=== PATIENT | female | born 1955 | race Caucasian/White ===

== ENCOUNTER → 2018-06-30 09:33 | Outpatient (CLI) | payer OTHER, SELFPAY ==
--- NOTE | 2018-06-30 10:03 | RAD_ITS ---
STUDY: X-RAY CHEST REASON FOR EXAM: Female, 63 years old. Hemoptysis. Hiatal hernia. TECHNIQUE: Frontal and lateral views of the chest. COMPARISON: None. FINDINGS: The lungs are clear and expanded. There is no demonstrated pleural abnormality. Normal size heart. Normal mediastinum and uriel. Normal visualized pulmonary arteries. Normal visualized aortic arch and descending thoracic aorta. Normal visualized thoracic spine. Normal visualized ribs, clavicles, and shoulders. There is no demonstrated abnormality of the visualized soft tissue structures of the upper abdomen. RAD/Chest PA and Lateral IMPRESSION: Normal x-ray examination of the chest. Electronically Signed: David Garcia MD at 18:28 EDT , Service support ,
[2018-06-30 11:01] LABS: Absolute Lymphocyte Count 2.55 X10^3/ul (0.83-4.51); Basophil# 0.05 X10^3/uL; Basophil% 0.6 % (0-1); Eosinophil# 0.16 X10^3/uL; Eosinophils% 1.9 % (0-5); Hematocrit 43.9 % (37-47); Hemoglobin 13.8 g/dl (12.0-15.0); Lymphocyte # 2.55 X10^3/ul (4.0); Lymphocyte % 30.7 % (19-41); Mean Corp Hgb Conc 31.4 g/gl (32-36); Mean Corpuscular Hgb 28.3 pg (27.0-32.0); Mean Corpuscular Volume 90.1 fL (81-99); Mean Platelet Vol. 9.5 fl (6.2-12.0); Monocyte# 0.59 X10^3/uL; Monocyte% 7.1 % (0-10); Neutrophil # 4.95 X10^3/uL (2.7-7.7); Neutrophil % 59.6 % (47-70); Platelet Count 413 K/mm3 (150-450); RBC Distribution Width CV 13.3 % (11.6-14.6); RBC Distribution Width SD 44.2 fl (35.1-43.9); Red Blood Count 4.87 M/mm3 (4.2-5.4); White Blood Count 8.3 K/mm3 (4.4-11.0)
[2018-06-30 11:03] LABS: POSITIVE COUNT NO; POSITIVE DIFFERENTIAL NO; POSITIVE MORPHOLOGY NO
[2018-06-30 11:45] LABS: ALB/GLOB Ratio 0.9 RATIO (0.9-2.4); AST(SGOT) 15 U/L (15-37); Alanine Aminotransfer ALT/SGPT 22 U/L (13-56); Albumin, Serum 3.6 g/dL (3.2-5.0); Alkaline Phosphatase 81 U/L (45-117); Anion Gap 9 (5-15); BUN 8 mg/dL (7-18); BUN/Creat Ratio 7.8 RATIO (10-20); Calcium,Total 9.2 mg/dL (8.5-10.1); Chloride 105 mmol/L (98-107); Cholesterol 246 mg/dL (200); Creatinine, Serum 1.03 mg/dL (0.55-1.02); EST Glomerular Filtration Rate 58 mL/min (>60); Est Glom Filt Rate - Afr Amer 70 mL/min (>60); Globulin 3.8 g/dL (2.2-4.2); Glucose 95 mg/dL (74-106); High Density Lipoprotein 38 mg/dL; Potassium 3.7 mmol/L (3.5-5.1); Protein, Total 7.4 g/dL (6.4-8.2); Sodium Level 141 mmol/L (136-145); Thyroid Stim Hormone (TSH) 0.91 uIU/mL (0.358-3.74); Triglycerides 253 mg/dL; Very Low Density Lipoprotein 51 mg/dL (5-40)
== END ==
PROVIDERS: Family Provider Family Medicine; PCP Family Medicine; Referring Provider Family Medicine; Visit Provider Family Medicine
DX: R04.2 Hemoptysis (principal); I10 Essential (primary) hypertension; E03.9 Hypothyroidism, unspecified
CPT/HCPCS: 36415; 71046; 80053; 80061; 84443; 85025

== ENCOUNTER → 2018-08-03 15:07 | Outpatient (CLI) | payer OTHER, SELFPAY ==
[2018-08-03 17:24] LABS: Absolute Lymphocyte Count 2.38 X10^3/ul (0.83-4.51); Absolute Neutrophil Count 4.3 X10^3/uL (2.0-7.7); Basophil# 0.04 X10^3/uL; Basophil% 0.5 % (0-1); Eosinophil# 0.34 X10^3/uL; Eosinophils% 4.2 % (0-5); Hematocrit 45.9 % (37-47); Hemoglobin 14.6 g/dl (12.0-15.0); Lymphocyte # 2.38 X10^3/ul (4.0); Lymphocyte % 29.4 % (19-41); Mean Corp Hgb Conc 31.8 g/gl (32-36); Mean Corpuscular Hgb 28.3 pg (27.0-32.0); Mean Platelet Vol. 9.7 fl (6.2-12.0); Monocyte# 1.06 X10^3/uL; Monocyte% 13.1 % (0-10); Neutrophil # 4.26 X10^3/uL (2.7-7.7); Neutrophil % 52.7 % (47-70); Platelet Count 372 K/mm3 (150-450); RBC Distribution Width CV 13.5 % (11.6-14.6); RBC Distribution Width SD 43.6 fl (35.1-43.9); Red Blood Count 5.16 M/mm3 (4.2-5.4); White Blood Count 8.1 K/mm3 (4.4-11.0)
[2018-08-03 17:26] LABS: POSITIVE COUNT NO; POSITIVE DIFFERENTIAL NO; POSITIVE MORPHOLOGY NO
[2018-08-03 17:27] LABS: Anion Gap 10 (5-15); BUN 7 mg/dL (7-18); BUN/Creat Ratio 6.4 RATIO (10-20); Calcium,Total 9.2 mg/dL (8.5-10.1); Chloride 104 mmol/L (98-107); EST Glomerular Filtration Rate 54 mL/min (>60); Est Glom Filt Rate - Afr Amer 65 mL/min (>60); Glucose 103 mg/dL (74-106); Potassium 3.5 mmol/L (3.5-5.1); Sodium Level 139 mmol/L (136-145)
[2018-08-03 17:42] LABS: Vitamin D,25 Hydroxy 39.2 ng/mL (29.95-100.01)
== END ==
PROVIDERS: Family Provider Family Medicine; PCP Family Medicine; Visit Provider Family Medicine
DX: E55.9 Vitamin D deficiency, unspecified (principal); R19.7 Diarrhea, unspecified
CPT/HCPCS: 36415; 80048; 82306; 85025

== ENCOUNTER → 2019-02-06 15:13 | Outpatient (CLI) | payer OTHER, SELFPAY ==
--- NOTE | 2019-02-06 15:18 | BI_ITS ---
MAMMOGRAPHY - BILATERAL SCREENING REASON FOR EXAM: Female, 63 years old. Routine annual screening examination. PERTINENT HISTORY: Non-contributory. TECHNIQUE: Digital bilateral breast ary (3D mammographic acquisition) in the CC and MLO projections. 2-D mediolateral oblique (MLO) and craniocaudad (CC) views of both breasts were obtained. CAD: Full Field Digital Mammography with Computer Added Detection was performed. COMPARISON: Comparison is made with prior study dated December 15, 2015 and February 14, 2012. FINDINGS: Breast Composition: There are scattered areas of fibroglandular density. There are no dominant masses or suspicious calcifications. Stable appearance of the small bilateral axillary lymph nodes. No other significant abnormalities are identified. There has been no significant change since the prior study. BI/SCREENING MAMM (CAD), BILAT IMPRESSION: Stable bilateral screening mammogram. Yearly follow-up mammogram recommended. (A) ASSESSMENT CATEGORY: BIRADS Category 2: Benign. A letter regarding these results will be sent to the patient by the facility within 30 days. Approximately 10% of breast cancers are not detected by mammography. A normal mammogram should not delay biopsy of a clinically suspicious abnormality. [id number] Electronically Signed: Lior Salomon, at 8:23 EDT , Service support ,
== END ==
PROVIDERS: Family Provider Family Medicine; PCP Family Medicine; Referring Provider Family Medicine; Visit Provider Family Medicine
DX: Z12.31 Encounter for screening mammogram for malignant neoplasm of breast (principal)
CPT/HCPCS: 77063; 77067

== ENCOUNTER → 2019-02-19 08:41 | Outpatient (CLI) | payer OTHER, SELFPAY ==
[2019-02-19 08:34] VITALS: BMI 45.3
--- NOTE | 2019-02-19 08:42 | RAD_ITS ---
STUDY: X-RAY - LEFT KNEE REASON FOR EXAM: Female, 63 years old. Chronic knee pain TECHNIQUE: 4 view(s) of the knee. COMPARISON: None. FINDINGS: Normal visualized distal femur. Normal visualized proximal tibia and fibula. Normal proximal tibiofibular articulation. There is no demonstrated fracture. There is moderate to severe degenerative arthrosis of the medial femorotibial compartment with moderate joint space narrowing. There is mild degenerative arthrosis of the lateral femorotibial compartment. Normal patellofemoral articulation. There is a soft tissue prominence in the suprapatellar region suggesting a small volume joint effusion. The soft tissue structures are unremarkable. RAD/Knee 4 or More Views IMPRESSION: No acute fracture or dislocation. Medial compartment degenerative changes. Small effusion. Electronically Signed: David Garcia MD at 19:17 EDT , Service support ,
--- NOTE | 2019-02-19 08:42 | RAD_ITS ---
STUDY: X-RAY - RIGHT KNEE REASON FOR EXAM: Female, 63 years old. Chronic knee pain. TECHNIQUE: 4 view(s) of the knee. COMPARISON: None. FINDINGS: Normal visualized distal femur. Normal visualized proximal tibia and fibula. Normal proximal tibiofibular articulation. There is no demonstrated fracture. There is severe degenerative arthrosis of the medial femorotibial compartment with severe joint space narrowing. Normal lateral femorotibial compartment. There is mild degenerative arthrosis of the patellofemoral articulation. There is a soft tissue prominence in the suprapatellar region suggesting a small volume joint effusion. The soft tissue structures are unremarkable. RAD/Knee 4 or More Views IMPRESSION: Severe medial compartment degenerative disease. Small effusion. No acute fracture or dislocation. Electronically Signed: David Garcia MD at 19:16 EDT , Service support ,
== END ==
PROVIDERS: Family Provider Family Medicine; PCP Family Medicine; Referring Provider Orthopaedic Surgery; Visit Provider Orthopaedic Surgery
DX: M17.0 Bilateral primary osteoarthritis of knee (principal)
CPT/HCPCS: 73564

== ENCOUNTER → 2019-02-19 08:45 | Outpatient (CLI) | payer OTHER, SELFPAY ==
[2019-02-19 08:34] VITALS: BMI 45.3
== END ==
PROVIDERS: Family Provider Family Medicine; PCP Family Medicine; Referring Provider Orthopaedic Surgery; Visit Provider Orthopaedic Surgery
DX: Z00.00 Encounter for general adult medical examination without abnormal findings (principal)

== ENCOUNTER 2019-07-10 09:47 | Observation (INO) | payer OTHER, SELFPAY ==
[2019-06-06 07:49] VITALS: BMI 45.3
[2019-06-25 12:36] VITALS: BMI 45.3
[2019-07-03 09:29] VITALS: BP 135/89; PULSE 67; RESP 16; TEMP 36.4; O2SAT 97; BMI 45.1
--- NOTE | 2019-07-03 09:36 | SDCEKG_ITS ---
Test Reason : Blood Pressure : / mmHG Vent. Rate : 062 BPM Atrial Rate : 062 BPM P-R Int : 168 ms QRS Dur : 096 ms QT Int : 432 ms P-R-T Axes : 047 -08 037 degrees QTc Int : 438 ms Normal sinus rhythm Normal ECG Confirmed by CHARLOTTE BULL ([id number]), metropolitan editor AYANNA KILLIAN ([id number]) on 07/09/2019 12:17:22 PM Referred By: Haresh Onofre Confirmed By:CHARLOTTE BULL
[2019-07-03 10:05] LABS: Hematocrit 44.7 % (37-47); Hemoglobin 14.1 g/dL (12.0-15.0); Mean Corp Hgb Conc 31.5 g/dL (32-36); Mean Corpuscular Hgb 28.7 pg (27.0-32.0); Mean Platelet Vol. 9.1 fl (6.2-12.0); Platelet Count 398 K/mm3 (150-450); RBC Distribution Width CV 13.3 % (11.6-14.6); RBC Distribution Width SD 45.1 fl (35.1-43.9); Red Blood Count 4.91 M/mm3 (4.2-5.4); White Blood Count 8.2 K/mm3 (4.4-11.0)
[2019-07-03 10:46] LABS: Anion Gap 8 (5-15); BUN 9 mg/dL (7-18); BUN/Creat Ratio 9.5 RATIO (10-20); Calcium,Total 9.1 mg/dL (8.5-10.1); Chloride 105 mmol/L (98-107); Cholesterol 251 mg/dL (200); Creatinine, Serum 0.95 mg/dL (0.55-1.02); EST Glomerular Filtration Rate 64 mL/min (>60); Est Glom Filt Rate - Afr Amer 77 mL/min (>60); Estimated Creatinine Clearance 48.56 ml/min; Glucose 92 mg/dL (74-106); High Density Lipoprotein 42 mg/dL; Potassium 4.4 mmol/L (3.5-5.1); Sodium Level 141 mmol/L (136-145); Thyroid Stim Hormone (TSH) 3.79 uIU/mL (0.358-3.74); Triglycerides 308 mg/dL; Very Low Density Lipoprotein 62 mg/dL (5-40)
[2019-07-10] VITALS (12 sets, daily range): BP systolic 121–151; BP diastolic 60–89; PULSE 68–91; RESP 15–18; TEMP 36.1–36.9; O2SAT 94–100; BMI 45.1
[2019-07-10 05:56] LABS: Bedside Glucose 104 mg/dL (70-110)
[2019-07-10] MEDS: Acetaminophen 500 MG Tablet 1000 MG PO ×3 (06:13→20:57)
[2019-07-10] MEDS: Scopolamine 1mg/72hr Patch 1 PATCH TRANSDERM. (06:13)
[2019-07-10] MEDS: Gabapentin 600 MG Tablet PO (06:16)
[2019-07-10] MEDS: Magnesium Sulfate 4gm/100mL 4 GM/100 ML IV.SOLN. IV (06:18)
[2019-07-10] MEDS: Lactated Ringers 1,000 ML 100 ML IV (06:25)
--- NOTE | 2019-07-10 07:00 | HP.PCM_ITS ---
History and Physical Date of Admission: 07/10/19 Intake Vital Signs 06/25/19 Body Mass Index (BMI) 45.3 Intake Visit Reasons: RIGHT KNEE Allergies Sulfa (Sulfonamide Antibiotics) Allergy (Mild, Verified 02/19/19 08:36) Hives Penicillins Allergy (Verified 02/22/18 09:10) Rash Medications Cholecalciferol (Vitamin D3) [Vitamin D3] 5,000 unit PO DAILY 02/01/14 [History Confirmed 06/25/19] Docusate Sodium [Colace] 100 mg PO QHS 02/01/14 [History Confirmed 06/25/19] Esomeprazole Mag Trihydrate [Nexium] 40 mg PO DAILY 02/01/14 [History Confirmed 06/25/19] Levothyroxine [Synthroid] 150 mcg PO DAILY 02/01/14 [History Confirmed 06/25/19] Albuterol IH (ProAir) [Proair Hfa (SP)Vent Pts] 2 puff INHALATION Q6H PRN PRN 01/24/15 [History Confirmed 06/25/19] Metoprolol(XL)Succ [Toprol Xl (Beta Gabriel)] 50 mg PO BID 01/24/15 [History Confirmed 06/25/19] PFSH Medical History (Updated 06/06/19 @ 10:56 by Triny Nickerson) Hypothyroidism (Acute) HTN (hypertension) (Chronic) Social History (Updated 06/25/19 @ 16:27 by GOLDEN Romero) Smoking Status: Never smoker HPI RIGHT KNEE: Details: Parts of this documentation were recorded by a scribe, this documentation accurately reflects the service provided and the decisions made by miJonny PA 06/25/19 1236. TENA QUINTANILLA is a 64 year old F here today to sign consent for right TKA. Patient has already discussed the surgery with our surgeon at her last visit. Denies numbness, tingling or other associated symptoms. Continues to have right generalized knee pain. surgery is sent for 07/10/19. Patients insurance will not cover the Iovera tx and she does not wish to pay out of pocket for this. ROS Const Reports system reviewed and no additional complaints, except as docu Eyes Reports system reviewed and no additional complaints, except as docu ENT Reports system reviewed and no additional complaints, except as docu Card Reports system reviewed and no additional complaints, except as docu Resp Reports system reviewed and no additional complaints, except as docu GI Reports system reviewed and no additional complaints, except as docu Musc Reports system reviewed and no additional complaints, except as docu, Reports as per HPI Skin/Breast Reports system reviewed and no additional complaints, except as docu Neuro Yes system reviewed and no additional complaints, except as docu Psych Reports system reviewed and no additional complaints, except as docu Endo Reports system reviewed and no additional complaints, except as docu Clayton/Lymph Reports system reviewed and no additional complaints, except as docu Aller/Immun Reports system reviewed and no additional complaints, except as docu Ortho Exam Right Knee Skin/Wound: No erythema, No ecchymosis, No swelling Contralateral Normal: Yes Homans Sign: No Knee ROM: No ROM-Extension -20 to 0, No ROM-Flexion 0-140 Examination: Yes Med jt line tenderness Assessment & Plan Problems 1. Chronic pain of right knee M25.561; G89.29 2. Primary osteoarthritis of right knee M17.11 Plan Patient presents to the office to sign surgical consent for right total knee arthroplasty. Patient has already met with Dr. Onofre and discussed the procedure as well as the recovery process. We did go over this procedure again as well as expectations postoperatively. Patient does have a ranch style home with walkout basement at the same time does have 13 stairs to get to the main level. She does have access to everything she needs on the walk out floor and therefore does not have to do her stairs immediately following surgery. We did look into Iovera treatment which is not currently covered by insurance and therefore does not want to proceed with paying [id number] for that. We again discussed risks and benefits of surgical procedure planned. Patient is aware of these risks and all of her questions were answered to her satisfaction today. Consent was signed in office today. Patient already has her antibacterial soap to be used prior to surgery as previously directed. Patient will receive a phone call from surgery as well as anesthesia for preanesthesia testing. She already has her date scheduled at the same time will not know the time of her surgery until the day before. She can notify the office if she has any que stions or other concerns or complaints in the meantime. Patient will stop anti- inflammatories 5 to 7 days prior to procedure. This note was generated with Dragon dictation software. It may contain incorrect words, spelling, and punctuation that were not noted in checking the note before signing. Coding Level of Care Code Off vis,est,level 2 Diagnoses Chronic pain of right knee M25.561; G89.29 ??Chronicity: chronic Primary osteoarthritis of right knee M17.11 I have re-examined the patient. There are no clinical changes since date of exam
[2019-07-10] MEDS: Cefazolin 2 GM in 0.9% Normal Saline 100 ML IV (07:31)
[2019-07-10] MEDS: dexAMETHasone 10 MG/ML Vial IV (07:54)
[2019-07-10] MEDS: Bupivacaine Mpf 0.5% 30 ML VIAL (08:30)
[2019-07-10] MEDS: Betamethasone/Betamethasone 30 MG/5 ML Vial (08:30)
[2019-07-10] MEDS: Epinephrine (1 mg/ml) 1 MG/ML VIAL (08:30)
--- NOTE | 2019-07-10 09:31 | PCM.OPRPT ---
Report of Operation Date of Procedure: 07/10/19 Description of Surgical Findings:: Preoperative diagnosis: Right knee DJD Postoperative diagnosis: Same Procedure: Right total knee arthroplasty Implant: Imogene triathlon cemented right femoral component size 4, cemented tibial baseplate size 4, cemented asymmetric patella size 35, polyethylene X3 size 9 CS Anesthesia: Spinal with adductor canal block Tourniquet time: 62 minutes at 300 mmHg Complications: None Condition: Stable to PACU Estimated blood loss: 25 cc Indication for procedure: This is a 64-year-old female with long standing degenerative joint disease of the knee who has failed conservative treatment and wished to proceed with elective total knee arthroplasty. Risk benefits and alternatives were reviewed including; risk of bleeding, infection, nerve artery and tissue damage, continued pain, postoperative stiffness, venous thromboembolism, need for postoperative rehabilitation, mechanical feel to the knee, and expected postoperative course. Procedure: The patient was met in the preoperative holding area. The operative extremity was identified by both patient and physician and was marked. Patient was met by anesthesia. An adductor canal block was placed by anesthesia postoperatively the patient was brought back to the operating room on a wheeled cart and transferred to the operating table in the supine position. Anesthesia was started. A well-padded tourniquet was placed on the operative extremity. The patient was prepped and draped in the usual sterile fashion. A timeout was called to ensure the proper patient procedure and extremity were being contemplated. An Esmarch was used to exsanguinate the extremity. The tourniquet was inflated. A 10 blade scalpel was used to make a midline incision down through the skin and subcutaneous tissue. Skin retractors placed. Bovie was used to perform meticulous hemostasis. full-thickness flaps were elevated medial and lateral along the joint capsule. A deep blade scalpel was used to perform a medial parapatellar arthrotomy. The knee was brought to full extension. A Bovie was used to release the soft tissues off the most proximal aspect of the medial tibial plateau a three-quarter inch curved osteotome was also used for this process. The infrapatellar fat pad was excised. The fat pad was excised partially anterior lateral portion the anterior medial was elevated from the femur. the patella was everted. The knee was brought into flexion. An intramedullary drill was used followed by flexible intramedullary guide salazar. The distal femoral cutting block was placed and set to remove 8 mm of bone and 5 degrees of valgus. The block was secured with pins and an oscillating saw was used to complete the distal femoral cut. During this, and all bony cuts retractors were used to protect the collateral ligaments. At this point a femoral sizer was used to measure the AP dimension of the femur. The sizer block was pinned parallel to the epicondylar access for external rotation. The sizing block was removed and the appropriately sized 4-in-1 cutting block was placed over the previously made pinholes. It was checked with an zoraida wing and the block was secured with pins. An oscillating saw was used to complete the anterior cut followed by the posterior cut followed by the posterior chamfer cut followed by the anterior chamfer cut. The block was removed as well as the fragments. A ronguer was used to remove excess osteophytes. The medial and lateral meniscus were excised as well as the ACL. At this point a PCL retractor was placed and an intramedullary drill was passed down the tibial canal followed by a solid intramedullary guide salazar. The tibial cutting block was attached and set to remove 9 mm of bone from the high side. This was checked with an external alignment drop salazar for slope and tilt. It was pinned into place. An oscillating saw was used to complete the tibial plateau cut and the block was removed. A large osteotome was used to elevate the fragment and a Myrna and a Bovie were used to free the fragment from the surrounding soft tissue. A rongeur was once again used to remove osteophytes a lamina vessel operator was used to evaluate the posterior capsular structures. A three-quarter inch curved osteotome was used to remove posterior osteophytes. A spacer block was inserted in both extension and flexion to ensure adequate spacing. Trials were inserted full extension and flexion were achieved in varus and valgus stability throughout range of motion were seen, balancing techniques were performed. At this point the attention was turned towards the patella. A caliper was used to ensure sufficient bone stock to remove 10 mm of bone. A reamer was used to perform this task. Lug holes were made for the appropriate-sized patella. The patella trial was inserted and there was good patellar tracking with knee range of motion. The tibial baseplate was allowed to float into rotation and was marked on the tibial plateau with a Bovie. Lug holes were made in the femur and trials were removed. The tibial baseplate was then sized and its preparation was completed with a fin punch. The knee was thoroughly irrigated. A posterior capsular injection was performed with our standard cocktail. The knee was brought into flexion and irrigated again. The tibial baseplate was cemented. Excess cement was removed with curettes. The polyethylene component was inserted. The femoral component was cemented. The knee was brought into full extension and placed on a bump. The patellar component was cemented. At this point a Betadine rinse was placed and thoroughly irrigated after a few minutes. This was followed by an Iricept rinse which was allowed to sit for 1 minute and then thoroughly irrigated.At this point all gloves were changed. The knee was thoroughly irrigated the joint capsule was closed with #1 Ethibond. Tourniquet was let down followed by 0 Vicryl and 2-0 Vicryl in the subcutaneous tissues. followed by barbara in the skin. Dressing was applied in the form of Mepilex silver dressing web roll and an Javier wrap from the foot to the groin. The patient tolerated the procedure well, all counts were correct patient was brought back to the PACU in stable condition.
--- NOTE | 2019-07-10 10:10 | RAD_ITS ---
STUDY: X-RAY - RIGHT KNEE REASON FOR EXAM: Female, 64 years old. Postop follow-up of the right knee TECHNIQUE: AP and crosstable lateral view(s) of the knee. COMPARISON: Preoperative radiographs of the right knee dated February 19, 2019. FINDINGS: Normal visualized distal femur. Normal visualized proximal tibia and fibula. Normal proximal tibiofibular articulation. There is no demonstrated fracture. Patient is had a total right knee arthroplasty. There is a distal femoral and proximal tibial prosthesis. There has been posterior resurfacing of the posterior patella There is a moderate volume joint effusion. There is an air-fluid level within the suprapatellar bursa consistent recent surgery. There is diffuse soft tissue swelling with soft tissue emphysema. Surgical skin barbara are visible in the soft tissues of the anterior knee. RAD/Knee 1 or 2 Views IMPRESSION: Documentation of recent total right knee arthroplasty. Electronically Signed: Marianne Pryor MD at 10:39 EDT , Service support ,
[2019-07-10] MEDS: Lactated Ringers 1,000 ML 125 ML IV ×2 (10:41→15:38)
--- NOTE | 2019-07-10 11:25 | NURSING ---
pt refused flu shot
[2019-07-10] MEDS: Meclizine 12.5 MG Tablet PO (13:04)
[2019-07-10] MEDS: Ketorolac 15 MG/ML Vial IV (13:04)
[2019-07-10] MEDS: Cefazolin 1 GM/50 ML BAG IV ×2 (15:39→22:51)
[2019-07-10] MEDS: Metoprolol Tartrate 50 MG Tablet PO (20:57)
[2019-07-10] MEDS: Loratadine 10 MG Tablet PO (20:57)
[2019-07-10] MEDS: Docusate Sodium 100 MG Capsule PO (20:58)
[2019-07-11 04:54] VITALS: BP 119/71; PULSE 68; RESP 18; TEMP 36.9; O2SAT 100
[2019-07-11 04:56] VITALS: BP 119/71; PULSE 68
[2019-07-11] MEDS: Metoprolol Tartrate 50 MG Tablet PO (04:56)
[2019-07-11] MEDS: Pantoprazole Sodium 40 MG Tablet PO (04:56)
[2019-07-11] MEDS: Levothyroxine 150 MCG Tablet PO (04:57)
[2019-07-11] MEDS: Acetaminophen 500 MG Tablet 1000 MG PO ×2 (04:57→13:51)
[2019-07-11 06:08] LABS: Hematocrit 40.2 % (37-47); Hemoglobin 12.5 g/dL (12.0-15.0); Mean Corp Hgb Conc 31.1 g/dL (32-36); Mean Corpuscular Hgb 28.3 pg (27.0-32.0); Mean Corpuscular Volume 91.2 fL (81-99); Mean Platelet Vol. 9.5 fl (6.2-12.0); Platelet Count 394 K/mm3 (150-450); RBC Distribution Width CV 13.2 % (11.6-14.6); RBC Distribution Width SD 44.5 fl (35.1-43.9); Red Blood Count 4.41 M/mm3 (4.2-5.4); White Blood Count 19.7 K/mm3 (4.4-11.0)
[2019-07-11 06:23] LABS: Anion Gap 5 (5-15); BUN 10 mg/dL (7-18); BUN/Creat Ratio 11.3 RATIO (10-20); Calcium,Total 8.9 mg/dL (8.5-10.1); Chloride 108 mmol/L (98-107); Creatinine, Serum 0.88 mg/dL (0.55-1.02); EST Glomerular Filtration Rate 69 mL/min (>60); Est Glom Filt Rate - Afr Amer 83 mL/min (>60); Estimated Creatinine Clearance 52.42 ml/min; Glucose 121 mg/dL (74-106); Potassium 4.5 mmol/L (3.5-5.1); Sodium Level 141 mmol/L (136-145)
[2019-07-11] MEDS: APIXABAN 2.5 MG TABLET PO (06:33)
--- NOTE | 2019-07-11 06:34 | PCM.DC.ORTHO ---
Discharge Diet: No Restrictions Call your doctor if you observe: Fever of 101 or Higher, Shortness of breath, Chest pain Additional Instructions: Ice and elevate next week while not ambulating. Encourage ambulation weightbearing as tolerated. Encourage FULL knee extension and flexion 1 time EVERY time you get up and down and MULTIPLE times per day. Begin showering postop day #3. Remove the dressing prior to shower gently wash with warm water and antibacterial soap then pat dry place ABD pad and REZA hose over top. This is to be done daily. do not submerge for 3 weeks. If not showering daily must clean incision and change dressing daily. Do not allow animals near incision keep clean. Follow anticoagulation recommendations. Call Dr. Onofre with any concerns. Allergies/Adverse Reactions: Allergies Sulfa (Sulfonamide Antibiotics) Allergy (Mild, Verified 07/10/19 06:01) Hives Penicillins Allergy (Verified 07/10/19 06:01) Rash Medications to take at Discharge Cholecalciferol (Vitamin D3) [Vitamin D3] 5,000 unit PO DAILY 02/01/14 Docusate Sodium [Colace] 100 mg PO QHS 02/01/14 Esomeprazole Mag Trihydrate [Nexium] 40 mg PO DAILY 02/01/14 Levothyroxine [Synthroid] 150 mcg PO DAILY 02/01/14 Albuterol IH (ProAir) [Proair Hfa] 2 puff INHALATION Q6H PRN PRN 01/24/15 Metoprolol(XL)Succ [Toprol Xl (Beta Gabriel)] 50 mg PO BID 01/24/15 Loratadine [Claritin] 10 mg PO QHS 07/03/19 Acetaminophen [Tylenol] 1,000 mg PO Q6H PRN #100 tab 07/11/19 Apixaban [Eliquis] 2.5 mg PO 0700,1900 #28 tab 07/11/19 Oxycodone [Oxyir] 5 - 10 mg PO Q4H PRN PRN #60 tablet 07/11/19 The following prescriptions were given: Apixaban [Eliquis] 2.5 mg PO 0700,1900 #28 tab Transmission Status: Pending to [facility] Oxycodone [Oxyir] 5 - 10 mg PO Q4H PRN PRN #60 tablet PRN Reason: Pain Score 4-10/10 Transmission Status: Sent to [facility] Acetaminophen [Tylenol] 1,000 mg PO Q6H PRN #100 tab Transmission Status: Pending to [facility] Primary Care Physician: Nelly Kline DO [Primary Care Provider] - Test Results: Test results from this visit will be discussed in further detail at your follow-up appointment, if applicable. Please Follow Up With: Haresh Onofre DO - 2 weeks
--- NOTE | 2019-07-11 06:36 | PCM.DC.SUM ---
Discharge Date and Diagnosis Date of Admission: 07/10/19 Date of Discharge: 07/11/19 Hospital Course and Treatment Procedures: - - tka right Summary of Care Provided: The patient is a 64 year old F who has long history of degenerative joint disease to the knee who has failed conservative treatment and wished to undergo elective total knee arthroplasty. Patient underwent the aformentioned procedure on the admission date without any intraoperative complications. Patient did receive pre-and postoperative antibiotics which were discontinued within 23 hours postoperatively. Patient did receive spinal anesthesia as well as an adductor canal block postoperatively. pain was controlled with IV and transition to p.o. pain medication Patient will be discharged home with oxycodone and will continue Tylenol as well. Patient had minimal intraoperative blood loss and tranexamic acid was administered there was no need for postoperative blood transfusion her vital signs remained stable. Patient was started on both mechanical and chemical DVT per prophylaxis postoperatively in the form of SCDs REZA hose and Eliquis 2.5 mg twice daily for which she will continue for 2 additional weeks post hospital discharge. Javier removed post op day number one and thigh high reza hose placed over top of the meplix silver dressing. This should be removed 72 hrs post operatively and showering begun daily at that time with warm water and antibacterial soap. not to submerge for 3 weeks. To change dressing daily at that point. Patient will follow-up in the office in 2 weeks. No intrahospital complications. Subjective: Wake alert no acute distress denies any nausea vomiting shortness of breath chest pain diarrhea - Physical Exam General: Alert, Oriented x3, Cooperative Musculoskeletal: - - Dressing clean dry and intact compartment soft neurovascular intact EHL tibialis anterior gastrocsoleus palpable pedal pulses in tact sensation light touch Vital Signs Temp Pulse Resp BP Pulse Ox 98.4 F 68 18 119/71 100 07/11/19 04:54 07/11/19 04:56 07/11/19 04:54 07/11/19 04:56 07/11/19 04:54 Oxygen Flow Rate (L/min) 4 Oxygen Delivery Method Room Air Weight: 246 lb 14.684 oz Body Mass Index (BMI) 45.1 Orthostatic Vital Signs Start: 07/10/19 15:26 Freq: q24h Status: Active Protocol: Activity Type Activity Date Activity User E-Sign Co-Sign Detail Recorded Client Recorded Date Recorded By Document 07/10/19 13:00 [facility] [id number] 07/10/19 15:27 [facility] 07/10/19 13:00 Orthostatic Vitals Standing -Blood Pressure (90/60-120/80) 144/86 H -Extremity Use Left Arm -Pulse Rate (60-100) 83 Intake and Output for Last 24 Hours 07/09/19 07/10/19 07/11/19 23:59 23:59 23:59 Intake Total 4234.17 / 5034.17 1427.25 / 1427.25 Output Total 500 / 1200 700 / 700 Balance 3734.17 / 3834.17 727.25 / 727.25 Laboratory Tests Past 24 Hrs 07/11/19 07/11/19 05:26 05:26 WBC 19.7 H RBC 4.41 Hgb 12.5 Hct 40.2 MCV 91.2 MCH 28.3 MCHC 31.1 L RDW Std Deviation 44.5 H RDW Coeff of Milka 13.2 Plt Count 394 MPV 9.5 Sodium 141 Potassium 4.5 Chloride 108 H Carbon Dioxide 28.0 Anion Gap 5 BUN 10 Creatinine 0.88 Estim Creat Clear Calc 52.42 Est GFR (MDRD) Af Amer 83 Est GFR (MDRD) Non-Af 69 BUN/Creatinine Ratio 11.3 Glucose 121 H Calcium 8.9 Discharge Diet: No Restrictions Call your doctor if you observe: Fever of 101 or Higher, Shortness of breath, Chest pain Home Medications: Medications to take at Discharge Cholecalciferol (Vitamin D3) [Vitamin D3] 5,000 unit PO DAILY 02/01/14 Docusate Sodium [Colace] 100 mg PO QHS 02/01/14 Esomeprazole Mag Trihydrate [Nexium] 40 mg PO DAILY 02/01/14 Levothyroxine [Synthroid] 150 mcg PO DAILY 02/01/14 Albuterol IH (ProAir) [Proair Hfa] 2 puff INHALATION Q6H PRN PRN 01/24/15 Metoprolol(XL)Succ [Toprol Xl (Beta Gabriel)] 50 mg PO BID 01/24/15 Loratadine [Claritin] 10 mg PO QHS 07/03/19 Acetaminophen [Tylenol] 1,000 mg PO Q6H PRN #100 tab 07/11/19 Apixaban [Eliquis] 2.5 mg PO 0700,1900 #28 tab 07/11/19 Oxycodone [Oxyir] 5 - 10 mg PO Q4H PRN PRN #60 tablet 07/11/19 Following Prescrptions Were Given to Patient: Apixaban [Eliquis] 2.5 mg PO 0700,1900 #28 tab Transmission Status: Pending to [facility] Oxycodone [Oxyir] 5 - 10 mg PO Q4H PRN PRN #60 tablet PRN Reason: Pain Score 4-1010 Transmission Status: Sent to [facility] Acetaminophen [Tylenol] 1,000 mg PO Q6H PRN #100 tab Transmission Status: Pending to [facility] Primary Care Physician: Nelly Kline DO [Primary Care Provider] - Please Follow Up With: Haresh Onofre DO - 2 weeks Additional Instructions: Ice and elevate next week while not ambulating. Encourage ambulation weightbearing as tolerated. Encourage FULL knee extension and flexion 1 time EVERY time you get up and down and MULTIPLE times per day. Begin showering postop day #3. Remove the dressing prior to shower gently wash with warm water and antibacterial soap then pat dry place ABD pad and REZA hose over top. This is to be done daily. do not submerge for 3 weeks. If not showering daily must clean incision and change dressing daily. Do not allow animals near incision keep clean. Follow anticoagulation recommendations. Call Dr. Onofre with any concerns. Medical Necessity - Tobacco Use Smoking Status: Never smoker Tobacco Use: Non-smoker Meaningful Use Info Meaningful Use Diagnoses (Choose all that apply): None applicable
[2019-07-11 07:30] VITALS: BP 117/66; PULSE 59; RESP 16; TEMP 36.4; O2SAT 100
--- NOTE | 2019-07-11 10:15 | CASEMGMT ---
WAQAR GARNER Face to Face with patient for initial transition planning/care coordination assessment. WAQAR GARNER introduced self and role at [facility]. Patient lying in bed, alert and oriented, at bedside. Patient willing to participate in assessment and is able to answer all questions appropriately. Care providers, pharmacy, and demographics verified. Patient wishes to discharge home and would like outpatient therapy at [facility] in [place]. Patient states she has no further needs or concerns at this time. CM to follow for discharge planning needs that may arise. PCP: Eliud Specialists: Lencho Davis Pharmacy: [facility] Insurance: MMO Prescription Benefit:yes Living Will/HPOA: None LNOK: Living Arrangements: Patient lives with in ranch style home. Patient independent at home prior to surgery Transportation: DME/HHC: Patient states she has walker, grab bars, shower chair, and raised toilet at home. Patient requesting outpatient therapy at [facility]. WAQAR GARNER called to schedule appt with [facility] in [place] per patient's request. Initial appointment scheduled for Tuesday07/13/19 at 1415 in [place] office and then from there can schedule appointment in [place] office. Patient updated and agreeable. WAQAR GARNER called Dr. Onofre's office to request order for therapy be faxed to [facility]. Disposition Plan: Patient to discharge home with outpatient therapy, family support, and follow-up plans in place. [place] العلي, WAQAR, CM
[2019-07-11 13:54] VITALS: BP 130/70; PULSE 71; RESP 18; TEMP 36.4; O2SAT 99
== END 2019-07-11 14:21 | disposition home or self-care (01) ==
LOC: SDC 10:04 → MS3 10:04
PROVIDERS: Anesthesiology; Admitting Provider Orthopaedic Surgery; Family Provider Family Medicine; PCP Family Medicine; Referring Provider Orthopaedic Surgery; Visit Provider Orthopaedic Surgery
PROC: (CPT 27447; principal; 2019-07-10 07:05)
DX: M17.11 Unilateral primary osteoarthritis, right knee (principal); Z79.899 Other long term (current) drug therapy; E03.9 Hypothyroidism, unspecified; I10 Essential (primary) hypertension; G89.29 Other chronic pain; K21.9 Gastro-esophageal reflux disease without esophagitis; J45.909 Unspecified asthma, uncomplicated
CPT/HCPCS: 27447; 64447; 36415; 73560; 80048; 80061; 82962; 84443; 85027; 87081; 93005; 96361; 96365; 96366; 96375; 97110; 97116; 97162; 97166; 97530; 99218; C1776; J7120; G0378; G0379; J0702; J2405; J3490

== ENCOUNTER → 2019-09-03 14:38 | Outpatient (CLI) | payer OTHER, SELFPAY ==
[2019-09-03 14:07] VITALS: BMI 44.9
[2019-09-03 16:24] LABS: Free T3 2.7 pg/mL (2.18-3.98); T4 Free Direct 1.33 ng/dL (0.76-1.46); Thyroid Stim Hormone (TSH) 0.71 uIU/mL (0.358-3.74)
== END ==
PROVIDERS: Family Provider Family Medicine; PCP Family Medicine; Referring Provider Family Medicine; Visit Provider Family Medicine
DX: E03.9 Hypothyroidism, unspecified (principal)
CPT/HCPCS: 36415; 84439; 84443; 84481

== ENCOUNTER 2019-09-11 12:14 | Observation (INO) | payer OTHER, SELFPAY ==
[2019-08-20 11:37] VITALS: BMI 45.1
[2019-09-03 14:07] VITALS: BP 132/84; PULSE 88; RESP 16; TEMP 36.8; O2SAT 95; BMI 44.9
--- NOTE | 2019-09-10 13:01 | PCM.HP.BLA ---
History and Physical Date of Admission: 09/11/19 Intake Vital Signs 08/20/19 Body Mass Index (BMI) 45.1 Intake Visit Reasons: RIGHT KNEE Chief Complaint: right knee Allergies Sulfa (Sulfonamide Antibiotics) Allergy (Mild, Verified 07/10/19 06:01) Hives Penicillins Allergy (Verified 07/10/19 06:01) Rash [facility] Medical History (Updated 07/10/19 @ 09:33 by Haresh Onofre DO) Hypothyroidism (Acute) HTN (hypertension) (Chronic) Social History (Updated 08/20/19 @ 11:56 by Haresh Onofre DO) Smoking Status: Never smoker HPI RIGHT KNEE: Chief Complaint: left knee djd Details: Parts of this documentation were recorded by a scribe, this documentation accurately reflects the service provided and the decisions made by me, Haresh Onofre DO 08/20/19 0756. TENA QUINTANILLA is a 64 year old F here today for left knee djd. To recall she has failed extensive conservative treatment including injections and therapy and anti-inflammatories . She does wish to proceed with elective left total knee arthroplasty . In addition today she is here for f/u right TKA on 07/10/19. She is ambulating well with not gait change, she has another week of PT. Her left remains painful, increased with stairs and prolonged ambulation. ROS Musc Reports as per HPI, Reports joint pain, Reports stiffness Skin/Breast Reports system reviewed and no additional complaints, except as docu Neuro Yes system reviewed and no additional complaints, except as docu Ortho Exam Right Knee Skin/Wound: No erythema, No ecchymosis, Yes swelling Homans Sign: No Knee ROM: Yes ROM-Extension -20 to 0, No ROM-Flexion 0-140 (116) Examination: Yes Pain with flexion Stability: NML: Anterior Drawer, NML: Posterior Drawer, NML: Valgus 30, NML: Varus 30 Left Knee Skin/Wound: No ecchymosis, No erythema, No swelling Homans Sign: No Knee ROM: Yes ROM-Extension -20 to 0, No ROM-Flexion 0-140 (110) Examination: Yes med jt line tenderness, Yes Pain with flexion Stability: NML: Anterior Drawer, NML: Posterior Drawer, NML: Valgus 30, NML: Varus 30 Patella Grind: Yes KNEE: Neurovascularly intact palpable pedal pulses no sign of skin concerns Supplemental Info 02/19/2019 x-ray left knee: [id number] medial compartment arthritis with varus deformity severe patellofemoral arthritis 02/19/2019 x-ray right knee: [id number] arthritis medial compartment with varus deformity severe patellofemoral arthritis Assessment & Plan Problems 1. Primary osteoarthritis of left knee M17.12 Plan Explained that the popping is expected and that is related to the mechanical feel from the metal and plastic. She should continue PT and use the HEP when completed PT. We will xray at the one year post surgery, call for any antibiotics needed. Her left knee has failed to respond to conservative care, she is a candidate for a Left TKA as well and we can consent for the left. Risks, benefits and alternatives of surgery reviewed including but not limited to bleeding, infection, nerve, artery and/or tissue damage, fracture, VTE, mechanical feel of the knee, continued pain, stiffness and expected post-operative course. Follow up in 6wks or sooner if pain, swelling, numbness or associated symptoms, or concerns develop. All questions answered. Patient in agreement of plan. Coding Level of Care Code Off vis,est,level 3 Diagnoses Primary osteoarthritis of left knee M17.12 ??Osteoarthritis type: primary I have re-examined the patient. There are no clinical changes since date of exam
[2019-09-11] VITALS (10 sets, daily range): BP systolic 104–148; BP diastolic 50–80; PULSE 74–105; RESP 15–18; TEMP 36.4–37.1; O2SAT 94–100; BMI 44.9; BMI 45.0
[2019-09-11] MEDS: Scopolamine 1mg/72hr Patch 1 PATCH TRANSDERM. (07:00)
[2019-09-11] MEDS: Acetaminophen 500 MG Tablet 1000 MG PO ×2 (07:00→22:00)
[2019-09-11] MEDS: Celecoxib 200 MG Capsule 400 MG PO (07:00)
[2019-09-11] MEDS: Gabapentin 600 MG Tablet PO (07:00)
[2019-09-11 12:50] LABS: Bedside Glucose 229 mg/dL (70-110)
[2019-09-11] MEDS: Lactated Ringers 1,000 ML 100 ML IV ×2 (13:24→15:00)
[2019-09-11] MEDS: Magnesium Sulfate 4gm/100mL 4 GM/100 ML IV.SOLN. IV (13:24)
[2019-09-11] MEDS: Cefazolin 2 GM in 0.9% Normal Saline 100 ML IV (14:35)
[2019-09-11] MEDS: dexAMETHasone 10 MG/ML Vial IV (15:00)
[2019-09-11] MEDS: Epinephrine (1 mg/ml) 1 MG/ML VIAL (15:35)
[2019-09-11] MEDS: Betamethasone/Betamethasone 30 MG/5 ML Vial (15:35)
[2019-09-11] MEDS: Bupivacaine 0.5% PF 10 ML VIAL (15:35)
--- NOTE | 2019-09-11 16:41 | PCM.OPRPT ---
Report of Operation Date of Procedure: 09/11/19 Description of Surgical Findings:: preoperative diagnosis: Left knee DJD Postoperative diagnosis: Same Procedure: Left total knee arthroplasty Implant: [place] triathlon cemented left femoral component size 4, cemented tibial baseplate size 5, cemented asymmetric patella size 35, polyethylene X3 size 9 CS Anesthesia: Spinal with adductor canal block Tourniquet time: 62 minutes at 300 mmHg Complications: None Condition: Stable to PACU Estimated blood loss: 25 cc Indication for procedure: This is a 64-year-old female with long standing degenerative joint disease of the knee who has failed conservative treatment and wished to proceed with elective total knee arthroplasty. Risk benefits and alternatives were reviewed including; risk of bleeding, infection, nerve artery and tissue damage, continued pain, postoperative stiffness, venous thromboembolism, need for postoperative rehabilitation, mechanical feel to the knee, and expected postoperative course. Procedure: The patient was met in the preoperative holding area. The operative extremity was identified by both patient and physician and was marked. Patient was met by anesthesia. An adductor canal block was placed by anesthesia postoperatively the patient was brought back to the operating room on a wheeled cart and transferred to the operating table in the supine position. Anesthesia was started. A well-padded tourniquet was placed on the operative extremity. The patient was prepped and draped in the usual sterile fashion. A timeout was called to ensure the proper patient procedure and extremity were being contemplated. An Esmarch was used to exsanguinate the extremity. The tourniquet was inflated. A 10 blade scalpel was used to make a midline incision down through the skin and subcutaneous tissue. Skin retractors placed. Bovie was used to perform meticulous hemostasis. full-thickness flaps were elevated medial and lateral along the joint capsule. A deep blade scalpel was used to perform a medial parapatellar arthrotomy. The knee was brought to full extension. A Bovie was used to release the soft tissues off the most proximal aspect of the medial tibial plateau a three-quarter inch curved osteotome was also used for this process. The infrapatellar fat pad was excised. The fat pad was excised partially anterior lateral portion the anterior medial was elevated from the femur. the patella was everted. The knee was brought into flexion. An intramedullary drill was used followed by flexible intramedullary guide salazar. The distal femoral cutting block was placed and set to remove 10 mm of bone and 5 degrees of valgus. The block was secured with pins and an oscillating saw was used to complete the distal femoral cut. During this, and all bony cuts retractors were used to protect the collateral ligaments. At this point a femoral sizer was used to measure the AP dimension of the femur. The sizer block was pinned parallel to the epicondylar access for external rotation. The sizing block was removed and the appropriately sized 4-in-1 cutting block was placed over the previously made pinholes. It was checked with an zoraida wing and the block was secured with pins. An oscillating saw was used to complete the anterior cut followed by the posterior cut followed by the posterior chamfer cut followed by the anterior chamfer cut. The block was removed as well as the fragments. A ronguer was used to remove excess osteophytes. The medial and lateral meniscus were excised as well as the ACL. At this point a PCL retractor was placed and an intramedullary drill was passed down the tibial canal followed by a solid intramedullary guide salazar. The tibial cutting block was attached and set to remove 9 mm of bone from the high side. This was checked with an external alignment drop salazar for slope and tilt. It was pinned into place. An oscillating saw was used to complete the tibial plateau cut and the block was removed. A large osteotome was used to elevate the fragment and a Myrna and a Bovie were used to free the fragment from the surrounding soft tissue. A rongeur was once again used to remove osteophytes a lamina veneer glue spreader was used to evaluate the posterior capsular structures. A three-quarter inch curved osteotome was used to remove posterior osteophytes. A spacer block was inserted in both extension and flexion to ensure adequate spacing. Trials were inserted full extension and flexion were achieved in varus and valgus stability throughout range of motion were seen, balancing techniques were performed. At this point the attention was turned towards the patella. A caliper was used to ensure sufficient bone stock to remove 10 mm of bone. A reamer was used to perform this task. Lug holes were made for the appropriate-sized patella. The patella trial was inserted and there was good patellar tracking with knee range of motion. The tibial baseplate was allowed to float into rotation and was marked on the tibial plateau with a Bovie. Lug holes were made in the femur and trials were removed. The tibial baseplate was then sized and its preparation was completed with a fin punch. The knee was thoroughly irrigated. A posterior capsular injection was performed with our standard cocktail. The knee was brought into flexion and irrigated again. The tibial baseplate was cemented. Excess cement was removed with curettes. The polyethylene component was inserted. The femoral component was cemented. The knee was brought into full extension and placed on a bump. The patellar component was cemented. At this point a Betadine rinse was placed and thoroughly irrigated after a few minutes. This was followed by an Iricept rinse which was allowed to sit for 1 minute and then thoroughly irrigated.At this point all gloves were changed. The knee was thoroughly irrigated the joint capsule was closed with #1 Ethibond. Tourniquet was let down followed by 0 Vicryl and 2-0 Vicryl in the subcutaneous tissues. followed by barbara in the skin. Dressing was applied in the form of Mepilex silver dressing web roll and an Javier wrap from the foot to the groin. The patient tolerated the procedure well, all counts were correct patient was brought back to the PACU in stable condition.
--- NOTE | 2019-09-11 16:45 | RAD_ITS ---
STUDY: X-RAY - LEFT KNEE REASON FOR EXAM: Female, 64 years old. Postop left knee replacement TECHNIQUE: 2 view(s) of the knee. COMPARISON: None. Findings: There is a recent total knee arthroplasty. The femoral and tibial components appear in satisfactory position. There has been patellar resurfacing. There is soft tissue air consistent with the recent surgery. The visualized femoral, tibial, and fibular shafts are unremarkable. RAD/Knee 1 or 2 Views IMPRESSION: Satisfactory appearance of a total knee arthroplasty. Electronically Signed: David Garcia MD at 17:25 EST , Service support ,
[2019-09-11] MEDS: Cefazolin 1 GM/50 ML BAG IV (17:03)
[2019-09-11] MEDS: Metoprolol(XL)Succ 50 MG Tablet PO (21:58)
[2019-09-11] MEDS: Senna/Docusate Sodium 1 Tablet 2 TABLET PO (22:00)
[2019-09-11] MEDS: Lactated Ringers 1,000 ML 125 ML IV (22:01)
[2019-09-12] MEDS: Ketorolac 15 MG/ML Vial IV (00:12)
[2019-09-12] MEDS: Cefazolin 1 GM/50 ML BAG IV ×2 (01:51→09:07)
[2019-09-12 04:00] VITALS: BP 103/59; PULSE 79; RESP 16; TEMP 36.3; O2SAT 96
--- NOTE | 2019-09-12 04:20 | NURSING ---
Pt assisted by this RN to bathroom this morning, with wheeled walker. While assisting pt back to bed, pt's knees buckled while standing at sink; pt grasped walker while this RN supported pt and called for additional staff assistance. Pt assisted back to bed, polar care placed on left knee, pt positioned in bed. Pain needs met. Will continue to monitor.
[2019-09-12] MEDS: Acetaminophen 500 MG Tablet 1000 MG PO ×2 (05:31→13:38)
[2019-09-12] MEDS: Levothyroxine 175 MCG Tablet PO (05:31)
[2019-09-12 05:32] LABS: Hematocrit 38.6 % (37-47); Hemoglobin 12.2 g/dL (12.0-15.0); Mean Corp Hgb Conc 31.6 g/dL (32-36); Mean Corpuscular Volume 88.7 fL (81-99); Mean Platelet Vol. 9.4 fl (6.2-12.0); Platelet Count 393 K/mm3 (150-450); RBC Distribution Width CV 13.1 % (11.6-14.6); RBC Distribution Width SD 42.4 fl (35.1-43.9); Red Blood Count 4.35 M/mm3 (4.2-5.4); White Blood Count 14.1 K/mm3 (4.4-11.0)
[2019-09-12] MEDS: 0.9% Saline Lock 10 ML Syringe IV ×3 (05:35→10:05)
[2019-09-12 05:55] LABS: Anion Gap 7 (5-15); BUN 7 mg/dL (7-18); BUN/Creat Ratio 6.9 RATIO (10-20); Calcium,Total 8.8 mg/dL (8.5-10.1); Chloride 109 mmol/L (98-107); Creatinine, Serum 1.01 mg/dL (0.55-1.02); EST Glomerular Filtration Rate 59 mL/min (>60); Est Glom Filt Rate - Afr Amer 71 mL/min (>60); Estimated Creatinine Clearance 45.68 ml/min; Glucose 153 mg/dL (74-106); Potassium 4.9 mmol/L (3.5-5.1); Sodium Level 140 mmol/L (136-145)
[2019-09-12] MEDS: APIXABAN 2.5 MG TABLET PO (06:06)
[2019-09-12] MEDS: Celecoxib 200 MG Capsule PO (08:11)
[2019-09-12] MEDS: Pantoprazole Sodium 40 MG Tablet PO (08:11)
[2019-09-12 08:12] VITALS: PULSE 70
[2019-09-12] MEDS: Metoprolol(XL)Succ 50 MG Tablet PO (08:12)
[2019-09-12] MEDS: Senna/Docusate Sodium 1 Tablet 2 TABLET PO (08:12)
[2019-09-12 09:01] VITALS: BP 107/57; PULSE 78; RESP 16; TEMP 36.7; O2SAT 97
--- NOTE | 2019-09-12 10:00 | CASEMGMT ---
WAQAR GARNER Face to Face with patient for initial transition planning/care coordination assessment. RN PATSY introduced self and role at [facility]. Patient sitting in chair, alert and oriented, at bedside. Patient willing to participate in assessment and is able to answer all questions appropriately. Care providers, pharmacy, and demographics verified. Patient wishes to discharge home and is setup with outpatient therapy at [facility] in [place]. Patient states she has no further needs or concerns at this time. CM to follow for discharge planning needs that may arise. PCP: Eliud Specialists: Lencho Davis Pharmacy: [facility] Insurance: MMO Prescription Benefit:yes Living Will/HPOA: None LNOK: Living Arrangements: Patient lives with in ranch style home. Patient independent at home prior to surgery Transportation: DME/HHC: Patient states she has walker, grab bars, shower chair, and raised toilet at home. Patient is setup with outpatient therapy at [facility] for Tuesday. Disposition Plan: Patient to discharge home with outpatient therapy, family support, and follow-up plans in place.
--- NOTE | 2019-09-12 12:19 | DCINST_ITS ---
Discharge Diet: No Restrictions Weight Bearing Status: Weight bearing as tolerated Call your doctor if you observe: Fever of 101 or Higher, Shortness of breath, Chest pain Additional Instructions: Ice and elevate next week while not ambulating. Encourage ambulation weightbearing as tolerated. Encourage FULL knee extension and flexion 1 time EVERY time you get up and down and MULTIPLE times per day. Begin showering postop day #3. Remove the dressing prior to shower gently wash with warm water and antibacterial soap then pat dry place ABD pad and REZA hose over top. This is to be done daily. do not submerge for 3 weeks. If not showering daily must clean incision and change dressing daily. Do not allow animals near incision keep clean. Follow anticoagulation recommendations. Start physical therapy. call Dr. Onofre with any concerns. Allergies/Adverse Reactions: Allergies Sulfa (Sulfonamide Antibiotics) Allergy (Mild, Verified 09/11/19 12:48) Hives Penicillins Allergy (Verified 09/11/19 12:48) Rash Medications to take at Discharge Cholecalciferol (Vitamin D3) [Vitamin D3] 5,000 unit PO DAILY 02/01/14 Docusate Sodium [Colace] 100 mg PO QHS 02/01/14 Esomeprazole Mag Trihydrate [Nexium] 40 mg PO DAILY 02/01/14 Levothyroxine [Synthroid] 175 mcg PO DAILY 02/01/14 Albuterol IH (ProAir) [Proair Hfa] 2 puff INHALATION Q6H PRN PRN 01/24/15 Metoprolol(XL)Succ [Toprol Xl (Beta Gabriel)] 50 mg PO BID 01/24/15 Acetaminophen [Tylenol] 1,000 mg PO Q6H PRN #100 tab 09/12/19 Apixaban [Eliquis] 2.5 mg PO BID #28 tab 09/12/19 Oxycodone [Oxyir] 5 - 10 mg PO Q4H PRN PRN #60 tablet 09/12/19 The following prescriptions were given: Apixaban [Eliquis] 2.5 mg PO BID #28 tab Transmission Status: Pending to [facility] Oxycodone [Oxyir] 5 - 10 mg PO Q4H PRN PRN #60 tablet PRN Reason: Pain Score 4-10/10 Transmission Status: Sent to [facility] Acetaminophen [Tylenol] 1,000 mg PO Q6H PRN #100 tab Transmission Status: Pending to [facility] Primary Care Physician: Nelly Kline DO [Primary Care Provider] - Test Results: Test results from this visit will be discussed in further detail at your follow- up appointment, if applicable. Please Follow Up With: Haresh Onofre DO - 2 weeks
--- NOTE | 2019-09-12 12:21 | DS.PCM_ITS ---
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 Patient underwent the aformentioned procedure on the admission date without any intraoperative complications. Patient did receive pre-and postoperative antibiotics which were discontinued within 23 hours postoperatively. Patient did receive spinal anesthesia as well as an adductor canal block postoperatively. pain was controlled with IV and transition to p.o. pain medication Patient will be discharged home with oxycodone and will continue Tylenol as well. Patient had minimal intraoperative blood loss and 2gm tranexamic acid was administered there was no need for postoperative blood transfusion Patients vital signs remained stable. Patient was started on both mechanical and chemical DVT per prophylaxis postoperatively in the form of SCDs REZA hose and Eliquis 2.5 mg twice daily for which she will continue for 2 additional weeks post hospital discharge. Javier removed post op day number one and thigh high reza hose placed over top of the meplix silver dressing. This should be removed 72 hrs post operatively and showering begun daily at that time with warm water and antibacterial soap. not to submerge for 3 weeks. To change d ressing daily after first dressing change. Patient will follow-up in the office in 2 weeks. No intrahospital complications. Subjective: Awake and alert no acute distress complaint of pain no fevers chills nausea vomiting shortness of breath or chest pain. She had a feeling of instability where her knee gave way yesterday but today is feeling better - Physical Exam Vitals/I&O's: Vital Signs Temp Pulse Resp BP Pulse Ox 98.0 F 78 16 107/57 L 97 09/12/19 09:01 09/12/19 09:01 09/12/19 09:01 09/12/19 09:01 09/12/19 09:01 Oxygen Flow Rate (L/min) 6 Oxygen Delivery Method Room Air Weight: 245 lb 13.047 oz Body Mass Index (BMI) 44.9 Intake and Output for Last 24 Hours 09/10/19 09/11/19 09/12/19 23:59 23:59 23:59 Intake Total 2243.33 / 2243.33 1605.42 / 1605.42 Output Total 2150 / 2150 Balance 2243.33 / 2243.33 -544.58 / -544.58 General: Alert, Oriented x3, Cooperative, No apparent distress Extremities: - - Dressing clean dry and intact thigh-high REZA hose in place. Neurovascular intact compartments soft. Laboratory Results 09/11/19 12:44: POC Glucose 229 H 09/12/19 05:06: WBC 14.1 H, RBC 4.35, Hgb 12.2, Hct 38.6, MCV 88.7, MCH 28.0, MCHC 31.6 L, RDW Std Deviation 42.4, RDW Coeff of Milka 13.1, Plt Count 393, MPV 9.4 09/12/19 05:06: Sodium 140, Potassium 4.9, Chloride 109 H, Carbon Dioxide 24.0, Anion Gap 7, BUN 7, Creatinine 1.01, Estim Creat Clear Calc 45.68, Est GFR (MDRD) Af Amer 71, Est GFR (MDRD) Non-Af 59 L, BUN/Creatinine Ratio 6.9 L, Glucose 153 H, Calcium 8.8 Current Medications Acetaminophen (Tylenol) 1,000 mg PO Q8 [facility] Last Admin: 09/12/19 05:31 Dose: 1,000 mg Documented by: Albuterol Sulfate (Ventolin Aerosols) 2.5 mg INHALATION Q4H PRN PRN Reason: Asthma Apixaban (Eliquis) 2.5 mg PO BID [facility] Last Admin: 09/12/19 06:06 Dose: 2.5 mg Documented by: Celecoxib (Celebrex) 200 mg PO BID [facility] Last Admin: 09/12/19 08:11 Dose: 200 mg Documented by: Hydromorphone HCl (Dilaudid Inj) 0.5 mg IV Q2H PRN PRN PRN Reason: .BREAKTHROUGH PAIN (>4/10) Lactated Ringer's () 1,000 mls @ 125 mls/hr IV .Q8H [facility] Last Admin: 09/12/19 08:11 Dose: Not Given Documented by: Sodium Chloride () 250 mls @ 15 mls/hr IV .[id number] PRN PRN Reason: Saline Flush Ketorolac Tromethamine (Toradol) 15 mg IV Q6H PRN PRN PRN Reason: Pain Score 1-5/10 Stop: 12/12/19 16:37 Last Admin: 09/12/19 00:12 Dose: 15 mg Documented by: Levothyroxine Sodium (Synthroid) 175 mcg PO DAILY@0600 [facility] Last Admin: 09/12/19 05:31 Dose: 175 mcg Documented by: Meclizine HCl (Antivert) 12.5 mg PO TID PRN PRN PRN Reason: DIZZINESS Metoprolol Succinate (Toprol Xl (Beta Gabriel)) 50 mg PO BID [facility] Last Admin: 09/12/19 08:12 Dose: 50 mg Documented by: Ondansetron HCl (Zofran) 4 mg IV Q6H PRN PRN PRN Reason: NAUSEA Oxycodone HCl (Oxyir) 5 - 10 mg PO Q4H PRN PRN PRN Reason: Pain Score 4-1010 Pantoprazole Sodium (Protonix) 40 mg PO DAILY [facility] Last Admin: 09/12/19 08:11 Dose: 40 mg Documented by: Senna/Docusate Sodium (Senokot-S, Malgorzata-Colace) 2 tablet PO BID [facility] Last Admin: 09/12/19 08:12 Dose: 2 tablet Documented by: Sodium Chloride () 10 - 40 ml IV UD PRN PRN Reason: SALINE FLUSH Last Admin: 09/12/19 10:05 Dose: 10 ml Documented by: Discharge Diet: No Restrictions Weight Bearing Status: Weight bearing as tolerated Call your doctor if you observe: Fever of 101 or Higher, Shortness of breath, Chest pain Home Medications: Medications to take at Discharge Cholecalciferol (Vitamin D3) [Vitamin D3] 5,000 unit PO DAILY 02/01/14 Docusate Sodium [Colace] 100 mg PO QHS 02/01/14 Esomeprazole Mag Trihydrate [Nexium] 40 mg PO DAILY 02/01/14 Levothyroxine [Synthroid] 175 mcg PO DAILY 02/01/14 Albuterol IH (ProAir) [Proair Hfa] 2 puff INHALATION Q6H PRN PRN 01/24/15 Metoprolol(XL)Succ [Toprol Xl (Beta Gabriel)] 50 mg PO BID 01/24/15 Acetaminophen [Tylenol] 1,000 mg PO Q6H PRN #100 tab 09/12/19 Apixaban [Eliquis] 2.5 mg PO BID #28 tab 09/12/19 Oxycodone [Oxyir] 5 - 10 mg PO Q4H PRN PRN #60 tablet 09/12/19 Following Prescrptions Were Given to Patient: Apixaban [Eliquis] 2.5 mg PO BID #28 tab Transmission Status: Pending to [facility] Oxycodone [Oxyir] 5 - 10 mg PO Q4H PRN PRN #60 tablet PRN Reason: Pain Score 4-1010 Transmission Status: Sent to [facility] Acetaminophen [Tylenol] 1,000 mg PO Q6H PRN #100 tab Transmission Status: Pending to [facility] Primary Care Physician: Nelly Kline DO [Primary Care Provider] - Please Follow Up With: Haresh Onofre DO - 2 weeks Additional Instructions: Ice and elevate next week while not ambulating. Encourage ambulation weightbearing as tolerated. Encourage FULL knee extension and flexion 1 time EVERY time you get up and down and MULTIPLE times per day. Begin showering postop day #3. Remove the dressing prior to shower gently wash with warm water and antibacterial soap then pat dry place ABD pad and REZA hose over top. This is to be done daily. do not submerge for 3 weeks. If not showering daily must clean incision and change dressing daily. Do not allow animals near incision keep clean. Follow anticoagulation recommendations. Start physical therapy. call Dr. Onofre with any concerns. Medical Necessity - Tobacco Use Smoking Status: Never smoker Meaningful Use Info Meaningful Use Diagnoses (Choose all that apply): None applicable
[2019-09-12 13:24] VITALS: BP 115/64; PULSE 75; RESP 16; TEMP 36.6; O2SAT 100
== END 2019-09-12 14:07 | disposition home or self-care (01) ==
LOC: MS3 09-12 10:13 → ACINP 09-12 10:47 → MS3 09-12 10:47
PROVIDERS: Admitting Provider Orthopaedic Surgery; Family Provider Family Medicine; PCP Family Medicine; Referring Provider Orthopaedic Surgery; Visit Provider Orthopaedic Surgery
PROC: (CPT 27447; principal; 2019-09-11 15:05)
DX: M17.12 Unilateral primary osteoarthritis, left knee (principal); E07.9 Disorder of thyroid, unspecified; Z79.899 Other long term (current) drug therapy; K21.9 Gastro-esophageal reflux disease without esophagitis; I10 Essential (primary) hypertension; J45.909 Unspecified asthma, uncomplicated
CPT/HCPCS: 27447; 64447; 36415; 73560; 80048; 82962; 85027; 87077; 87081; 96361; 96365; 96366; 96375; 97162; 97166; 97530; 99218; 99251; C1776; J7120; A4216; G0378; G0379; G0463; J0702; J2405

== ENCOUNTER → 2019-12-03 13:42 | Outpatient (CLI) | payer OTHER, SELFPAY ==
[2019-12-03 13:00] VITALS: BMI 44.9
--- NOTE | 2019-12-03 13:43 | RAD_ITS ---
STUDY: X-RAY - LEFT KNEE REASON FOR EXAM: Knee pain. TECHNIQUE: 4 view(s) of the knee. COMPARISON: Radiographs 09/11/2019. FINDINGS: There is a left total knee arthroplasty without evidence of complication. There is a joint effusion. RAD/Knee 4 or More Views IMPRESSION: Uncomplicated left total knee arthroplasty. Joint effusion. Electronically Signed: Pedro Mcghee MD at 14:50 EST Tel , Service support ,
--- NOTE | 2019-12-03 13:43 | RAD_ITS ---
STUDY: X-RAY - PELVIS AND LEFT HIP REASON FOR EXAM: Female, 64 years old. HIP PAIN TECHNIQUE: 3 views of the pelvis and hip. COMPARISON: None. FINDINGS: There is a non-specific bowel gas pattern. Normal visualized soft tissue structures. Normal bilateral iliac wings, sacroiliac joints and visualized sacrum. Normal bilateral superior and inferior pubic rami. Normal pubic symphysis. Normal bilateral ischial tuberosities. Normal visualized femoral head. Normal acetabulum. Normal hip joint. RAD/HIP, UNI W/ Pelvis 2-3 Views IMPRESSION: Normal x-ray examination of the pelvis and hip. Electronically Signed: Andrew Lopez MD at 8:08 EST Tel , Service support ,
== END ==
PROVIDERS: PCP Family Medicine; Referring Provider Orthopaedic Surgery; Visit Provider Orthopaedic Surgery
DX: M25.552 Pain in left hip (principal); M25.562 Pain in left knee
CPT/HCPCS: 73502; 73564

== ENCOUNTER → 2022-08-10 | Outpatient (CLI) | payer MEDICARE, SELFPAY ==
[2022-08-10 15:15] LABS: Absolute Lymphocyte Count 3.05 X10^3/uL (0.83-4.51); Absolute Neutrophil Count 3.5 X10^3/uL (2.0-7.7); Basophil# 0.08 X10^3/uL; Eosinophil# 0.34 X10^3/uL; Eosinophils% 4.4 % (0-5); Hematocrit 43.5 % (37-47); Hemoglobin 13.5 g/dL (12.0-15.0); Lymphocyte # 3.05 X10^3/ul (0.83-4.51); Lymphocyte % 39.2 % (19-41); Mean Corpuscular Hgb 26.9 pg (27.0-32.0); Mean Corpuscular Volume 86.7 fL (81-99); Mean Platelet Vol. 9.5 fl (6.2-12.0); Monocyte# 0.83 X10^3/uL; Monocyte% 10.7 % (0-10); NRBC Flagged by Analyzer 0 % (0-5); Neutrophil # 3.45 X10^3/uL (2.7-7.7); Neutrophil % 44.2 % (47-70); Platelet Count 382 K/mm3 (150-450); RBC Distribution Width SD 47.8 fl (35.1-43.9); Red Blood Count 5.02 M/mm3 (4.2-5.4); White Blood Count 7.8 K/mm3 (4.4-11.0)
[2022-08-10 18:20] LABS: CRP 6.59 mg/L (0.0-3.0)
== END | disposition home or self-care (01) ==
LOC: BFHLAB 13:03
PROVIDERS: PCP Family Medicine; Visit Provider Family Medicine
DX: I88.9 Nonspecific lymphadenitis, unspecified (principal)
CPT/HCPCS: 36415; 85025; 86140

== ENCOUNTER → 2022-09-09 | Outpatient (CLI) | payer MEDICARE, SELFPAY ==
--- NOTE | 2022-09-09 16:40 | US_ITS ---
STUDY: THYROID ULTRASOUND REASON FOR EXAM: Female, 67 years old. LYMPHADENITIS- LT NECK PALP TECHNIQUE: Ultrasound evaluation of the left neck palpable area of concern was performed with real-time and static perez-scale imaging. COMPARISON: None. FINDINGS: Left posterior neck anechoic, thick-walled structure with internal echoes and some vascularity measures 9 x 8 x 8 mm. This displaces posterior acoustic enhancement. Cluster of anechoic nodules in the left neck palpable area of concern, the largest of which measures 1.3 x 0.8 x 0.8 cm. 4 mm right cervical lymph node. US/Head/Neck Soft Tissue IMPRESSION: 9 mm thick-walled cystic nodule with in the left neck palpable area of concern. There is a nearby 1.3 x 0.8 x 0.8 cm anechoic nodule. These may represent dermal/epididymal conclusion cysts versus infection. Electronically Signed: Juan C Campuzano MD at 18:25 EST ,
== END | disposition home or self-care (01) ==
PROVIDERS: PCP Family Medicine; Referring Provider Family Medicine; Visit Provider Family Medicine
DX: I88.9 Nonspecific lymphadenitis, unspecified (principal)
CPT/HCPCS: 76536

== ENCOUNTER → 2024-06-11 | Outpatient (CLI) | payer MEDICARE, SELFPAY ==
[2024-06-11 15:22] LABS: Absolute Lymphocyte Count 3.41 X10^3/uL (0.83-4.51); Absolute Neutrophil Count 4.6 X10^3/uL (2.0-7.7); Basophil# 0.09 X10^3/uL; Eosinophil# 0.47 X10^3/uL; Eosinophils% 5.2 % (0-5); Hematocrit 43.1 % (37-47); Hemoglobin 13.1 g/dL (12.0-15.0); Lymphocyte # 3.41 X10^3/ul (0.83-4.51); Lymphocyte % 37.4 % (19-41); Mean Corp Hgb Conc 30.4 g/dL (32-36); Mean Corpuscular Volume 85.5 fL (81-99); Mean Platelet Vol. 9.8 fl (6.2-12.0); Monocyte# 0.54 X10^3/uL; Monocyte% 5.9 % (0-10); NRBC Flagged by Analyzer 0 % (0-5); Neutrophil # 4.56 X10^3/uL (2.7-7.7); Neutrophil % 50.1 % (47-70); Platelet Count 420 K/mm3 (150-450); RBC Distribution Width CV 14.5 % (11.6-14.6); Red Blood Count 5.04 M/mm3 (4.2-5.4); White Blood Count 9.1 K/mm3 (4.4-11.0)
[2024-06-11 16:30] LABS: ALB/GLOB Ratio 0.8 RATIO (0.9-2.4); AST(SGOT) 34 U/L (15-37); Alanine Aminotransfer ALT/SGPT 29 U/L (13-56); Albumin, Serum 3.6 g/dL (3.2-5.0); Alkaline Phosphatase 74 U/L (45-117); Anion Gap 9 (5-15); BUN 8 mg/dL (7-18); Calcium,Total 9.9 mg/dL (8.5-10.1); Chloride 103 mmol/L (98-107); EST Glomerular Filtration Rate 59 mL/min (>60); Est Glom Filt Rate - Afr Amer 71 mL/min (>60); Free T3 2.2 pg/mL (2.18-3.98); Globulin 4.4 g/dL (2.2-4.2); Glucose 161 mg/dL (74-106); Potassium 3.8 mmol/L (3.5-5.1); Sodium Level 138 mmol/L (136-145); T4 Free Direct 1.21 ng/dL (0.76-1.46); Thyroid Stim Hormone (TSH) 0.899 uIU/mL (0.358-3.740)
== END | disposition home or self-care (01) ==
PROVIDERS: PCP Family Medicine; Referring Provider Family Medicine; Visit Provider Family Medicine
DX: E03.9 Hypothyroidism, unspecified (principal); Z51.81 Encounter for therapeutic drug level monitoring
CPT/HCPCS: 36415; 80053; 84439; 84443; 84481; 85025

== ENCOUNTER → 2024-07-13 | Outpatient (CLI) | payer MEDICARE, SELFPAY ==
--- NOTE | 2024-07-13 07:40 | BI_ITS ---
MAMMOGRAPHY - BILATERAL SCREENING REASON FOR EXAM: Female, 69 years old. Routine annual screening examination. PERTINENT HISTORY: Non-contributory. TECHNIQUE: Digital bilateral breast edith (3D mammographic acquisition) in the CC and MLO projections. 2-D mediolateral oblique (MLO) and craniocaudad (CC) views of both breasts were obtained. CAD: Full Field Digital Mammography with Computer Added Detection was performed. COMPARISON: Comparison is made with prior study February 06, 2019 and December 15, 2015. FINDINGS: Breast Composition: There are scattered areas of fibroglandular density. There are no dominant masses or suspicious calcifications. Stable appearance of the benign-appearing bilateral axillary lymph nodes. No other significant abnormalities are identified. There has been no significant change since the prior study. BI/SCRN MAMM (CAD)W/EDITH BILAT IMPRESSION: Stable bilateral screening mammogram. Yearly follow-up mammogram recommended. (A) ASSESSMENT CATEGORY: BIRADS Category 2: Benign. A letter regarding these results will be sent to the patient by the facility within 30 days. Approximately 10% of breast cancers are not detected by mammography. A normal mammogram should not delay biopsy of a clinically suspicious abnormality. [id number] Electronically Signed: Lior Salomon MD at 8:36 EDT ,
== END | disposition home or self-care (01) ==
LOC: OPBI 07:37
PROVIDERS: PCP Family Medicine; Referring Provider Family Medicine; Visit Provider Family Medicine
DX: Z12.31 Encounter for screening mammogram for malignant neoplasm of breast (principal)
CPT/HCPCS: 77063; 77067

== ENCOUNTER → 2024-12-17 | Outpatient (CLI) | payer MEDICARE, SELFPAY ==
[2024-12-17 18:53] LABS: Ferritin 15 ng/mL (22-378); Vitamin D,25 Hydroxy 54.6 ng/mL (30-100)
[2024-12-17 19:05] LABS: Erythrocyte Sedimentation Rate 7 mm/hr (0-30)
[2024-12-17 21:48] LABS: CRP 4.82 mg/L (0.0-3.0); Iron 43 ug/dL (50-170)
[2024-12-19 12:08] LABS: ANTINUCLEAR ANTIBODIES DIRECT Negative (Negative)
== END | disposition home or self-care (01) ==
LOC: BFHLAB 14:40
PROVIDERS: PCP Family Medicine; Visit Provider Family Medicine
DX: E55.9 Vitamin D deficiency, unspecified (principal); E61.1 Iron deficiency; D64.9 Anemia, unspecified; M25.50 Pain in unspecified joint; M79.10 Myalgia, unspecified site
CPT/HCPCS: 36415; 82306; 82728; 83540; 85652; 86038; 86140; 86225; 86235

== ENCOUNTER → 2025-01-28 | Outpatient (CLI) | payer MEDICARE, SELFPAY ==
[2025-01-28 11:24] LABS: Absolute Lymphocyte Count 3.48 X10^3/uL (0.83-4.51); Absolute Neutrophil Count 3.8 X10^3/uL (2.0-7.7); Basophil# 0.08 X10^3/uL; Basophil% 0.9 % (0-1); Eosinophil# 0.49 X10^3/uL; Eosinophils% 5.7 % (0-5); Hematocrit 42.8 % (37-47); Hemoglobin 14.6 g/dL (12.0-15.0); Lymphocyte # 3.48 X10^3/ul (0.83-4.51); Lymphocyte % 40.6 % (19-41); Mean Corp Hgb Conc 34.1 g/dL (32-36); Mean Corpuscular Hgb 27.8 pg (27.0-32.0); Mean Corpuscular Volume 81.5 fL (81-99); Mean Platelet Vol. 9.7 fl (6.2-12.0); Monocyte% 8.2 % (0-10); NRBC Flagged by Analyzer 0 % (0-5); Neutrophil # 3.79 X10^3/uL (2.7-7.7); Neutrophil % 44.2 % (47-70); Platelet Count 430 K/mm3 (150-450); RBC Distribution Width CV 16.5 % (11.6-14.6); Red Blood Count 5.25 M/mm3 (4.2-5.4); White Blood Count 8.6 K/mm3 (4.4-11.0)
[2025-01-28 12:20] LABS: Ferritin 37 ng/mL (22-378); Iron 111 ug/dL (50-170)
== END | disposition home or self-care (01) ==
LOC: LAB 10:32
PROVIDERS: PCP Family Medicine; Referring Provider Family Medicine; Visit Provider Family Medicine
DX: D50.9 Iron deficiency anemia, unspecified (principal)
CPT/HCPCS: 36415; 82728; 83540; 85025

== ENCOUNTER → 2025-07-24 | Outpatient (CLI) | payer MEDICARE, SELFPAY ==
[2025-07-24 12:31] LABS: Hematocrit 44.3 % (37-47); Hemoglobin 14.3 g/dL (12.0-15.0); Immature Granulocytes Count 0.010 X10^3/uL (0.0-0.0); Mean Corp Hgb Conc 32.3 g/dL (32-36); Mean Corpuscular Volume 86.9 fL (81-99); Mean Platelet Vol. 9.7 fl (6.2-12.0); NRBC Flagged by Analyzer 0 % (0-5); Platelet Count 373 K/mm3 (150-450); RBC Distribution Width CV 14.1 % (11.6-14.6); RBC Distribution Width SD 45.1 fl (35.1-43.9); Red Blood Count 5.10 M/mm3 (4.2-5.4); White Blood Count 8.1 K/mm3 (4.4-11.0)
[2025-07-24 13:12] LABS: AST(SGOT) 18 U/L (<=31); Alanine Aminotransfer ALT/SGPT 13 U/L (<=34); Albumin, Serum 4.3 g/dL (3.4-4.8); Alkaline Phosphatase 64 U/L (35-104); Anion Gap 10 (5-15); BUN 15 mg/dL (4-19); BUN/Creat Ratio 20.1 RATIO (10-20); Calcium,Total 9.8 mg/dL (7.6-11.0); Carbon Dioxide 25.5 mmol/L (21.0-32.0); Chloride 103 mmol/L (98-108); Ferritin 25 ng/mL (22-378); Free T3 3.3 pg/mL (2.18-3.98); Globulin 3.3 g/dL (2.2-4.2); Glucose 95 mg/dL (70-99); Potassium 4.5 mmol/L (3.3-5.1); Vitamin D,25 Hydroxy 64.1 ng/mL (30-100)
[2025-07-24 13:34] LABS: Iron 75 ug/dL (50-170)
== END | disposition home or self-care (01) ==
LOC: MTLAB 10:19
PROVIDERS: PCP Family Medicine; Referring Provider Family Medicine; Visit Provider Family Medicine
DX: E03.9 Hypothyroidism, unspecified (principal); D50.9 Iron deficiency anemia, unspecified; E55.9 Vitamin D deficiency, unspecified; Z51.81 Encounter for therapeutic drug level monitoring
CPT/HCPCS: 36415; 80053; 82306; 82728; 83540; 84439; 84443; 84481; 85025